=== PATIENT | female | born 1955 | race Caucasian/White ===

== ENCOUNTER → 2016-06-02 | Outpatient (CLI) | payer BC ==
--- NOTE | 2016-06-03 09:25 | REPMRS ---
Patient History The patient states she has not had a clinical breast exam in over a year. Patient is postmenopausal. No known family history of cancer. Digital Woman Screen Mammo: June 02, 2016 - Exam #: [id number] Bilateral CC and MLO view(s) were taken. Technologist: Oumou Becerra, Technologist Prior study comparison: March 01, 2013, digital woman screen mammo performed at [facility] to [facility]. November 16, 2011, digital woman screen mammo performed at [facility] to [facility]. FINDINGS: There are scattered fibroglandular densities. There has been no change in the appearance of the mammogram from the prior studies. There is a mild amount of residual fibroglandular tissue which is fairly symmetric. There is no interval development of dominant mass, architectural distortion, or clustered microcalcification suggestive of malignancy. ASSESSMENT: BI-RADS/ACR category 1 mammogram. Negative. Recommendation Routine screening mammogram in 1 year (for women over age 40). This mammogram was interpreted with the aid of an FDA-approved computer-aided dectection system. Electronically Signed By: Frederic Weber MD 06/03/16 0925
--- NOTE | 2016-06-05 09:52 | DEXA ---
AP SPINE L1 - L4 1.499 2.5 2.9 LT FEMUR TOTAL 0.895 -0.9 -0.5 RT FEMUR TOTAL 0.956 -0.4 0.0 TOTAL BODY TOTAL OTHER DUAL FEMUR FRAX* ASSESSMENT Risk factors: None. 10 year probability of fracture Major osteoporotic fracture 7.9 % Hip fracture 0.7 % COMMENTS: Normal bone densitometry of the spine. There is low bone density of the hips. The decreased density of the spine does represent a significant change. The decreased density of the left hip does represent a significant change. The decreased density of the right hip does represent a significant change. The density of the spine has increased 9.3% since the initial exam on 08/2003. The spine density has decreased 3.9% since the most recent exam on 02/2013. The density of the left hip has decreased 14.6% since the initial exam on 2003. The density of the left hip has decreased 4.9% since the most recent exam on 2012. The density of the right hip has decreased 5.6% since the initial exam on 2003. The density of the right hip has decreased 4.6% since the most recent exam on . FOLLOW-UP: Recommendation for the next bone density exam: 2 years. ROSE
== END ==
LOC: M WHC 15:53
PROVIDERS: ATTEND Family Medicine
DX: Z12.31 Encounter for screening mammogram for malignant neoplasm of breast (principal); M85.80 Other specified disorders of bone density and structure, unspecified site; Z78.0 Asymptomatic menopausal state

== ENCOUNTER → 2016-10-05 | Outpatient (CLI) | payer BC ==
[2016-10-05 07:13] LABS: BASO # 0.1 K/mm3 (0.0-0.2); BASO % 1.5 % (0.0-1.0); EOS # 0.5 K/mm3 (0.0-0.50); EOS % 7.7 % (0.0-3.0); LARGE UNSTAINED CELL # 0.2 K/mm3 (0.0-0.4); LARGE UNSTAINED CELL % 2.9 % (0.0-4.0); LYMPH # 2.2 K/mm3 (1.5-4.5); LYMPH % 31.9 % (24.0-44.0); MEAN CORPUSCULAR HEMOGLOBIN 32.8 pg (27.0-33.0); MEAN CORPUSCULAR HGB CONC 34.2 g/dl (32.0-36.5); MEAN CORPUSCULAR VOLUME 95.7 fl (80.0-96.0); MONO # 0.3 K/mm3 (0.0-0.8); MONO % 5.4 % (0.0-5.0); NEUTROPHILS # 3.2 K/mm3 (1.8-7.7); NEUTROPHILS % 50.7 % (36.0-66.0); PLATELET COUNT, AUTOMATED 239 k/mm3 (150-450); RED CELL DISTRIBUTION WIDTH 12.7 % (11.5-14.5); WHITE BLOOD COUNT 6.2 K/mm3 (4.0-10.0)
[2016-10-05 07:49] LABS: ALBUMIN 3.6 GM/DL (3.2-5.2); ALBUMIN/GLOBULIN RATIO 1.09 (1.00-1.93); ALKALINE PHOSPHATASE 92 U/L (45-117); ALT/SGPT 25 U/L (12-78); ANION GAP 6 MEQ/L (8-16); AST/SGOT 17 U/L (15-37); BILIRUBIN,TOTAL 0.3 MG/DL (0.2-1.0); BLOOD UREA NITROGEN 17 MG/DL (7-18); CARBON DIOXIDE LEVEL 29 MEQ/L (21-32); CHLORIDE LEVEL 107 MEQ/L (98-107); CHOLESTEROL LEVEL 268 MG/DL (<200); CREATININE FOR GFR 0.63 MG/DL (0.55-1.02); GLOMERULAR FILTRATION RATE > 60.0 (>51); GLUCOSE, FASTING 88 MG/DL (70-105); POTASSIUM SERUM 4.1 MEQ/L (3.5-5.1); SODIUM LEVEL 142 MEQ/L (136-145); TOTAL PROTEIN 6.9 GM/DL (6.4-8.2); TRIGLYCERIDES LEVEL 84 MG/DL (<150)
== END ==
LOC: M LAB 06:00
PROVIDERS: ATTEND Family Medicine
DX: E78.2 Mixed hyperlipidemia (principal); I10 Essential (primary) hypertension; E03.9 Hypothyroidism, unspecified; E55.9 Vitamin D deficiency, unspecified

== ENCOUNTER → 2017-10-15 | Outpatient (CLI) | payer BC ==
[2017-10-15 08:28] LABS: ALBUMIN 3.7 GM/DL (3.2-5.2); ALBUMIN/GLOBULIN RATIO 1.09 (1.00-1.93); ALKALINE PHOSPHATASE 76 U/L (45-117); ALT/SGPT 28 U/L (12-78); ANION GAP 6 MEQ/L (8-16); AST/SGOT 21 U/L (7-37); BILIRUBIN,TOTAL 0.4 MG/DL (0.2-1.0); BLOOD UREA NITROGEN 21 MG/DL (7-18); CALCIUM LEVEL 8.6 MG/DL (8.8-10.2); CARBON DIOXIDE LEVEL 27 MEQ/L (21-32); CHLORIDE LEVEL 110 MEQ/L (98-107); CREATININE FOR GFR 0.58 MG/DL (0.55-1.30); FREE T4 0.92 NG/DL (0.76-1.46); GLOMERULAR FILTRATION RATE > 60.0 (>45); GLUCOSE, FASTING 82 MG/DL (70-100); POTASSIUM SERUM 4.2 MEQ/L (3.5-5.1); SODIUM LEVEL 143 MEQ/L (136-145); TOTAL PROTEIN 7.1 GM/DL (6.4-8.2)
[2017-10-15 08:50] LABS: ESTIMATED AVERAGE GLUCOSE 105 MG/DL (60-110); HEMOGLOBIN A1c 5.3 %
[2017-10-15 10:22] LABS: PTH INTACT 36.4 PG/ML (18.5-88.0); TOTAL 25(OH) VITAMIN D 82.5 NG/ML (30.0-100.0)
[2017-10-16 14:10] LABS: INSULIN LEVEL 15.6 uIU/mL (2.6-24.9)
== END ==
LOC: M LAB 06:10
DX: E55.9 Vitamin D deficiency, unspecified (principal)
CPT/HCPCS: 83525

== ENCOUNTER → 2017-10-29 | Outpatient (CLI) | payer BC | LOC: M WHC 07:51 | DX: Z12.31 Encounter for screening mammogram for malignant neoplasm of breast (principal); Z78.0 Asymptomatic menopausal state | CPT/HCPCS: 77067 ==

== ENCOUNTER → 2017-11-01 | Outpatient (CLI) | payer BC | LOC: M RAD 12:28 | DX: E78.2 Mixed hyperlipidemia (principal) ==

== ENCOUNTER → 2018-04-18 | Outpatient (CLI) | payer BC ==
[2018-04-18 06:48] LABS: BASO # 0.1 10^3/uL (0.0-0.2); BASO % 0.9 % (0.0-1.0); EOS # 0.2 10^3/uL (0.0-0.50); EOS % 4.1 % (0.0-3.0); HEMATOCRIT 42.5 % (36.0-47.0); HEMOGLOBIN 14.2 g/dl (12.0-15.5); IMMATURE GRANULOCYTE % 0.2 % (0-3.0); LYMPH # 1.8 10^3/uL (1.5-4.5); LYMPH % 32.8 % (24.0-44.0); MEAN CORPUSCULAR HEMOGLOBIN 32.3 pg (27.0-33.0); MEAN CORPUSCULAR HGB CONC 33.4 g/dl (32.0-36.5); MEAN CORPUSCULAR VOLUME 96.6 fl (80.0-96.0); MONO # 0.5 10^3/uL (0.0-0.8); MONO % 9.4 % (0.0-5.0); NEUTROPHILS # 2.9 10^3/uL (1.8-7.7); NEUTROPHILS % 52.6 % (36.0-66.0); PLATELET COUNT, AUTOMATED 237 10^3/uL (150-450); RED CELL DISTRIBUTION WIDTH 12.5 % (11.5-14.5); WHITE BLOOD COUNT 5.4 10^3/uL (4.0-10.0)
[2018-04-18 07:04] LABS: ESTIMATED AVERAGE GLUCOSE 105 MG/DL (60-110); HEMOGLOBIN A1c 5.3 %
[2018-04-18 07:18] LABS: ALBUMIN 3.4 GM/DL (3.2-5.2); ALBUMIN/GLOBULIN RATIO 1.03 (1.00-1.93); ALKALINE PHOSPHATASE 95 U/L (45-117); ALT/SGPT 29 U/L (12-78); ANION GAP 7 MEQ/L (8-16); AST/SGOT 20 U/L (7-37); BILIRUBIN,TOTAL 0.4 MG/DL (0.2-1.0); BLOOD UREA NITROGEN 14 MG/DL (7-18); CALCIUM LEVEL 8.7 MG/DL (8.8-10.2); CARBON DIOXIDE LEVEL 27 MEQ/L (21-32); CHLORIDE LEVEL 108 MEQ/L (98-107); CHOLESTEROL LEVEL 277 MG/DL (<200); CHOLESTEROL RISK RATIO 4.467 (<5); CREATININE FOR GFR 0.63 MG/DL (0.55-1.30); FREE THYROXINE INDEX 2.6 % (1.3-4.8); GLOMERULAR FILTRATION RATE > 60.0 (>45); GLUCOSE, FASTING 87 MG/DL (70-100); HDL CHOLESTEROL 62 MG/DL (>40); LDL CHOLESTEROL 188 MG/DL (<100); NON-HDL-C 215 MG/DL; POTASSIUM SERUM 4.2 MEQ/L (3.5-5.1); SODIUM LEVEL 142 MEQ/L (136-145); T UPTAKE 33 % (30-39); THYROID STIMULATING HORMONE 0.137 uIU/ML (0.358-3.740); TOTAL PROTEIN 6.7 GM/DL (6.4-8.2); TRIGLYCERIDES LEVEL 134 MG/DL (<150)
== END ==
LOC: M LAB 06:08
DX: Z13.29 Encounter for screening for other suspected endocrine disorder (principal); E03.9 Hypothyroidism, unspecified
CPT/HCPCS: 84443

== ENCOUNTER 2018-09-18 15:28 | Emergency (ER) | payer BC ==
[~2018-09-18] VITALS: Ht 162.6 cm; Wt 86.4 kg
[2018-09-18] MEDS ORDERED: CYTO25TA6 PO (15:38)
[2018-09-18] MEDS ORDERED: SYNT88TA2 PO (15:38)
[2018-09-18] MEDS ORDERED: FLUORESCEIN OPHTH 1 MG STRIP OD ONE (16:15)
[2018-09-18] MEDS ORDERED: TETANUS/DIPHTHERIA TOX ADSORB ADULT 0.5ML SYR/VIAL (90714) IM ONE (17:00)
[2018-09-18] MEDS ORDERED: VIGA0.02 OD (17:24)
[2018-09-18] MEDS ORDERED: ARTIDRO OD (17:24)
[2018-09-18] MEDS ORDERED: POLYSOL OD (17:24)
[2018-09-18] MEDS ORDERED: GATIFLOXACIN 0.5% 2.5ML OPHTH SOL OD ONE (17:30)
[2018-09-18] MEDS ORDERED: POLYTRIM OPTH DROPS 10ML OD ONE (17:30)
[2018-09-18 17:39] VITALS: BP 155/75
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
== END 2018-09-18 18:28 | disposition home or self-care (01) ==
LOC: M ED 15:28
DX: S05.01XA Injury of conjunctiva and corneal abrasion without foreign body, right eye, initial encounter (principal); T15.81XA Foreign body in other and multiple parts of external eye, right eye, initial encounter; W38.XXXA Explosion and rupture of other specified pressurized devices, initial encounter; Y92.099 Unspecified place in other non-institutional residence as the place of occurrence of the external cause; Y93.89 Activity, other specified; Y99.9 Unspecified external cause status; H11.31 Conjunctival hemorrhage, right eye; E03.9 Hypothyroidism, unspecified; H20.9 Unspecified iridocyclitis; H43.811 Vitreous degeneration, right eye; Z79.899 Other long term (current) drug therapy

== ENCOUNTER → 2018-12-23 | Outpatient (REF) | payer BC ==
[~2018-12-23] MED LIST: ARTIDRO OD; CYTO25TA6 PO; POLYSOL OD; SYNT88TA2 PO; VIGA0.02 OD
[2018-12-23 12:50] LABS: CHOLESTEROL RISK RATIO 3.803 (<5); FREE T4 0.83 NG/DL (0.76-1.46); THYROID STIMULATING HORMONE 0.555 uIU/ML (0.358-3.740)
== END ==
LOC: M LABDRAWC 11:49
PROVIDERS: ATTEND Family Medicine
DX: E03.9 Hypothyroidism, unspecified (principal); E78.00 Pure hypercholesterolemia, unspecified

== ENCOUNTER → 2019-07-05 | Outpatient (CLI) | payer BC ==
--- NOTE | 2019-07-05 14:28 | REP ---
BILATERAL SCREENING DIGITAL MAMMOGRAM WITH 3D TOMOSYNTHESIS: There are no palpable abnormalities or other breast complaints. The the patient states she had a clinical breast examination July,. The Tyrer-Cuzick Lifetime Breast Cancer Risk score is: 9.1% . Comparison is the 03/01/2013. The breasts are almost entirely fatty. There is no dominant mass, micro calcific cluster or architectural distortion that would indicate malignancy. There are no additional findings on 3D tomosynthesiss. There is no change from the prior study. Impression: BIRADS/ACR category 1 mammogram. Negative. Recommendation: Routine annual screening mammography. This mammogram was interpreted with the aid of a FDA approved computer-aided detection system. A. Negative mammogram reports should not delay biopsy if a dominant or clinically suspicious mass is present. B. Not all breast cancers are identified by mammography or tomosynthesis. C. Adenosis and dense breasts may obscure an underlying neoplasm. Patient letter M1. Electronically Signed by Frederic Main MD 07/05/2019 02:20 P
--- NOTE | 2019-07-06 12:34 | REP ---
Clinical: Pain. Technique: AP, lateral, bilateral oblique and scaphoid views of the right wrist. Findings: Age-related osteopenia and toscano-carpal arthritic changes are appreciated. Findings include elements of joint space narrowing with cortical irregularities primarily involving the first and second carpometacarpal joints. Increase sclerosis along the radial surface with radiocarpal joint space narrowing also appreciated. 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 Electronically Signed by Gerardo Quiroz MD 07/06/2019 12:25 P
--- NOTE | 2019-07-06 12:38 | REP ---
Clinical: Pain. Technique: AP, lateral, bilateral oblique views of the right hand. Findings: Age-related osteopenia appreciated. Mild age-related degenerative changes include joint space narrowing primarily involving the PIP joints. Cortical irregularity and degenerative changes are also noted at at the first and second carpometacarpal joints. No acute fracture dislocation. Impression: Age-related osteopenia and arthritic changes. Electronically Signed by Gerardo Quiroz MD 07/06/2019 12:29 P
== END ==
LOC: M RAD 12:56
PROVIDERS: ATTEND Physician Assistant
DX: Z12.31 Encounter for screening mammogram for malignant neoplasm of breast (principal); M25.531 Pain in right wrist; M85.831 Other specified disorders of bone density and structure, right forearm; M19.031 Primary osteoarthritis, right wrist

== ENCOUNTER → 2019-12-12 | Outpatient (REF) | payer BC ==
[2019-12-12 11:34] LABS: BASO # 0.1 10^3/uL (0.0-0.2); BASO % 0.8 % (0.0-1.0); EOS # 0.2 10^3/uL (0.0-0.5); EOS % 3.5 % (0.0-3.0); HEMATOCRIT 43.8 % (36.0-47.0); HEMOGLOBIN 14.4 g/dl (12.0-15.5); LYMPH # 2.3 10^3/uL (1.5-5.0); MEAN CORPUSCULAR HEMOGLOBIN 31.6 pg (27.0-33.0); MEAN CORPUSCULAR HGB CONC 32.9 g/dl (32.0-36.5); MEAN CORPUSCULAR VOLUME 96.1 fl (80.0-96.0); MONO # 0.5 10^3/uL (0.0-0.8); MONO % 9.1 % (0.0-5.0); NEUTROPHILS # 2.9 10^3/uL (1.5-8.5); NEUTROPHILS % 48.4 % (36.0-66.0); PLATELET COUNT, AUTOMATED 263 10^3/uL (150-450); RED BLOOD COUNT 4.56 10^6/uL (4.00-5.40); WHITE BLOOD COUNT 5.9 10^3/uL (4.0-10.0)
[2019-12-12 12:11] LABS: ALBUMIN 3.8 GM/DL (3.2-5.2); ALT/SGPT 29 U/L (12-78); BILIRUBIN,TOTAL 0.5 MG/DL (0.2-1.0); BLOOD UREA NITROGEN 15 MG/DL (7-18); CALCIUM LEVEL 9.1 MG/DL (8.8-10.2); CARBON DIOXIDE LEVEL 27 MEQ/L (21-32); CHLORIDE LEVEL 108 MEQ/L (98-107); CREATININE FOR GFR 0.72 MG/DL (0.55-1.30); FREE T3 2.7 PG/ML (2.2-4.0); FREE T4 0.97 NG/DL (0.76-1.46); GLOMERULAR FILTRATION RATE > 60.0 (>45); GLUCOSE, FASTING 93 MG/DL (70-100); POTASSIUM SERUM 4.2 MEQ/L (3.5-5.1); SODIUM LEVEL 143 MEQ/L (136-145); THYROID STIMULATING HORMONE 0.108 uIU/ML (0.358-3.740); TOTAL PROTEIN 7.2 GM/DL (6.4-8.2)
[2019-12-12 12:18] LABS: TOTAL 25(OH) VITAMIN D 89.1 NG/ML (30.0-100.0)
== END ==
LOC: M LABDRAWC 11:02
PROVIDERS: ATTEND Physician Assistant
DX: E03.9 Hypothyroidism, unspecified (principal)

== ENCOUNTER → 2020-05-07 | Outpatient (REF) | payer BC ==
[2020-05-08 12:59] LABS: FREE T4 0.84 NG/DL (0.76-1.46); THYROID STIMULATING HORMONE 0.784 uIU/ML (0.358-3.740)
== END ==
LOC: M LABDRAWC 11:56
PROVIDERS: ATTEND Family Medicine
DX: E03.9 Hypothyroidism, unspecified (principal)

== ENCOUNTER → 2020-06-21 | Outpatient (REF) | payer BC ==
[2020-06-21 12:27] LABS: BASO # 0.1 10^3/uL (0.0-0.2); BASO % 1.3 % (0.0-1.0); EOS # 0.1 10^3/uL (0.0-0.5); EOS % 2.1 % (0.0-3.0); HEMATOCRIT 44.7 % (36.0-47.0); HEMOGLOBIN 14.6 g/dl (12.0-15.5); LYMPH % 40.9 % (24.0-44.0); MEAN CORPUSCULAR HEMOGLOBIN 31.9 pg (27.0-33.0); MEAN CORPUSCULAR HGB CONC 32.7 g/dl (32.0-36.5); MEAN CORPUSCULAR VOLUME 97.8 fl (80.0-96.0); MONO # 0.5 10^3/uL (0.0-0.8); MONO % 9.4 % (0.0-5.0); NEUTROPHILS # 2.2 10^3/uL (1.5-8.5); NEUTROPHILS % 46.1 % (36.0-66.0); PLATELET COUNT, AUTOMATED 251 10^3/uL (150-450); RED BLOOD COUNT 4.57 10^6/uL (4.00-5.40); WHITE BLOOD COUNT 4.8 10^3/uL (4.0-10.0)
[2020-06-21 13:18] LABS: ALBUMIN 3.6 GM/DL (3.2-5.2); ALT/SGPT 36 U/L (12-78); BILIRUBIN,TOTAL 0.5 MG/DL (0.2-1.0); BLOOD UREA NITROGEN 15 MG/DL (7-18); CALCIUM LEVEL 9.4 MG/DL (8.8-10.2); CARBON DIOXIDE LEVEL 28 MEQ/L (21-32); CHLORIDE LEVEL 108 MEQ/L (98-107); CHOLESTEROL LEVEL 268 MG/DL (<200); CHOLESTEROL RISK RATIO 3.884 (<5); FREE T4 0.72 NG/DL (0.76-1.46); GLOMERULAR FILTRATION RATE > 60.0 (>45); GLUCOSE, FASTING 88 MG/DL (70-100); HDL CHOLESTEROL 69 MG/DL (>40); LDL CHOLESTEROL 179 MG/DL (<100); NON-HDL-C 199 MG/DL; POTASSIUM SERUM 4.1 MEQ/L (3.5-5.1); SODIUM LEVEL 141 MEQ/L (136-145); TOTAL PROTEIN 6.8 GM/DL (6.4-8.2); TRIGLYCERIDES LEVEL 102 MG/DL (<150)
== END ==
LOC: M LABDRAWC 11:08
PROVIDERS: ATTEND Family Medicine
DX: E78.00 Pure hypercholesterolemia, unspecified (principal); E03.9 Hypothyroidism, unspecified

== ENCOUNTER → 2020-09-27 | Outpatient (REF) | payer BC ==
[2020-09-27 12:43] LABS: BASO # 0.1 10^3/uL (0.0-0.2); BASO % 1.2 % (0.0-1.0); EOS # 0.2 10^3/uL (0.0-0.5); EOS % 3.1 % (0.0-3.0); HEMOGLOBIN 14.8 g/dl (12.0-15.5); LYMPH % 41.4 % (24.0-44.0); MEAN CORPUSCULAR HEMOGLOBIN 31.9 pg (27.0-33.0); MEAN CORPUSCULAR HGB CONC 32.9 g/dl (32.0-36.5); MONO # 0.5 10^3/uL (0.0-0.8); MONO % 9.7 % (2.0-8.0); NEUTROPHILS # 2.2 10^3/uL (1.5-8.5); NEUTROPHILS % 44.4 % (36.0-66.0); PLATELET COUNT, AUTOMATED 260 10^3/uL (150-450); RED BLOOD COUNT 4.64 10^6/uL (4.00-5.40); WHITE BLOOD COUNT 4.9 10^3/uL (4.0-10.0)
[2020-09-27 13:23] LABS: ALBUMIN 3.5 GM/DL (3.2-5.2); ALT/SGPT 32 U/L (12-78); BILIRUBIN,TOTAL 0.4 MG/DL (0.2-1.0); BLOOD UREA NITROGEN 15 MG/DL (7-18); CARBON DIOXIDE LEVEL 27 MEQ/L (21-32); CHLORIDE LEVEL 110 MEQ/L (98-107); CREATININE FOR GFR 0.57 MG/DL (0.55-1.30); FREE T3 2.6 PG/ML (2.2-4.0); FREE T4 0.83 NG/DL (0.76-1.46); GLOMERULAR FILTRATION RATE > 60.0 (>45); GLUCOSE, FASTING 91 MG/DL (70-100); POTASSIUM SERUM 4.2 MEQ/L (3.5-5.1); SODIUM LEVEL 141 MEQ/L (136-145); TOTAL PROTEIN 6.8 GM/DL (6.4-8.2)
[2020-09-27 13:24] LABS: FOLATE > 24.0 NG/ML; VITAMIN B12 LEVEL 731 PG/ML
== END ==
LOC: M LABDRAWC 11:46
PROVIDERS: ATTEND Physician Assistant
DX: E03.9 Hypothyroidism, unspecified (principal)

== ENCOUNTER → 2020-12-05 | Outpatient (REF) | payer BC ==
[2020-12-05 12:51] LABS: FREE T3 2.3 PG/ML (2.2-4.0); FREE T4 0.84 NG/DL (0.76-1.46); THYROID STIMULATING HORMONE 13.5 uIU/ML (0.358-3.740); TOTAL 25(OH) VITAMIN D 68.5 NG/ML (30.0-100.0)
== END ==
LOC: M LABDRAWC 11:07
PROVIDERS: ATTEND Physician Assistant
DX: E03.9 Hypothyroidism, unspecified (principal)

== ENCOUNTER → 2021-02-07 | Outpatient (REF) | payer BC ==
[2021-02-07 11:48] LABS: BASO # 0.1 10^3/uL (0.0-0.2); BASO % 1.2 % (0.0-1.0); EOS # 0.1 10^3/uL (0.0-0.5); EOS % 2.4 % (0.0-3.0); HEMATOCRIT 45.4 % (36.0-47.0); LYMPH # 1.9 10^3/uL (1.5-5.0); MEAN CORPUSCULAR HEMOGLOBIN 32.5 pg (27.0-33.0); MEAN CORPUSCULAR VOLUME 98.3 fl (80.0-96.0); MONO # 0.6 10^3/uL (0.0-0.8); MONO % 9.7 % (2.0-8.0); NEUTROPHILS # 3.1 10^3/uL (1.5-8.5); NEUTROPHILS % 53.4 % (36.0-66.0); PLATELET COUNT, AUTOMATED 248 10^3/uL (150-450); RED BLOOD COUNT 4.62 10^6/uL (4.00-5.40); WHITE BLOOD COUNT 5.9 10^3/uL (4.0-10.0)
[2021-02-07 12:25] LABS: ALBUMIN 3.5 GM/DL (3.2-5.2); ALT/SGPT 38 U/L (12-78); BILIRUBIN,TOTAL 0.4 MG/DL (0.2-1.0); BLOOD UREA NITROGEN 13 MG/DL (7-18); CARBON DIOXIDE LEVEL 28 MEQ/L (21-32); CHLORIDE LEVEL 111 MEQ/L (98-107); FREE T3 2.3 PG/ML (2.2-4.0); FREE T4 1.03 NG/DL (0.76-1.46); GLOMERULAR FILTRATION RATE > 60.0 (>45); GLUCOSE, FASTING 88 MG/DL (70-100); POTASSIUM SERUM 4.1 MEQ/L (3.5-5.1); SODIUM LEVEL 142 MEQ/L (136-145); TOTAL 25(OH) VITAMIN D 69.3 NG/ML (30.0-100.0); TOTAL PROTEIN 6.8 GM/DL (6.4-8.2)
== END ==
LOC: M LABDRAWC 11:21
PROVIDERS: ATTEND Physician Assistant
DX: E03.9 Hypothyroidism, unspecified (principal)

== ENCOUNTER → 2021-05-09 | Outpatient (REF) | payer BC ==
[2021-05-09 11:39] LABS: BASO # 0.1 10^3/uL (0.0-0.2); BASO % 1.6 % (0.0-1.0); EOS # 0.2 10^3/uL (0.0-0.5); EOS % 4.1 % (0.0-3.0); HEMATOCRIT 42.6 % (36.0-47.0); HEMOGLOBIN 14.1 g/dl (12.0-15.5); LYMPH # 2.1 10^3/uL (1.5-5.0); LYMPH % 41.2 % (24.0-44.0); MEAN CORPUSCULAR HGB CONC 33.1 g/dl (32.0-36.5); MEAN CORPUSCULAR VOLUME 96.6 fl (80.0-96.0); MONO # 0.5 10^3/uL (0.0-0.8); MONO % 9.9 % (2.0-8.0); NEUTROPHILS # 2.2 10^3/uL (1.5-8.5); PLATELET COUNT, AUTOMATED 257 10^3/uL (150-450); RED BLOOD COUNT 4.41 10^6/uL (4.00-5.40); WHITE BLOOD COUNT 5.1 10^3/uL (4.0-10.0)
[2021-05-09 12:15] LABS: ALBUMIN 3.4 GM/DL (3.2-5.2); ALT/SGPT 27 U/L (12-78); BILIRUBIN,TOTAL 0.4 MG/DL (0.2-1.0); BLOOD UREA NITROGEN 13 MG/DL (7-18); CALCIUM LEVEL 9.1 MG/DL (8.8-10.2); CARBON DIOXIDE LEVEL 27 MEQ/L (21-32); CHLORIDE LEVEL 110 MEQ/L (98-107); CREATININE FOR GFR 0.66 MG/DL (0.55-1.30); FREE T4 1.24 NG/DL (0.76-1.46); GLOMERULAR FILTRATION RATE > 60.0 (>45); GLUCOSE, FASTING 92 MG/DL (70-100); POTASSIUM SERUM 4.2 MEQ/L (3.5-5.1); SODIUM LEVEL 143 MEQ/L (136-145); TOTAL 25(OH) VITAMIN D 74.3 NG/ML (30.0-100.0); TOTAL PROTEIN 6.6 GM/DL (6.4-8.2)
== END ==
LOC: M LABDRAWC 10:58
PROVIDERS: ATTEND Physician Assistant
DX: E03.9 Hypothyroidism, unspecified (principal)

== ENCOUNTER → 2021-07-17 | Outpatient (REF) | payer BC ==
[2021-07-17 11:52] LABS: BASO # 0.1 10^3/uL (0.0-0.2); BASO % 1.6 % (0.0-1.0); EOS # 0.2 10^3/uL (0.0-0.5); EOS % 3.5 % (0.0-3.0); HEMATOCRIT 43.9 % (36.0-47.0); HEMOGLOBIN 14.5 g/dl (12.0-15.5); LYMPH # 1.8 10^3/uL (1.5-5.0); LYMPH % 31.5 % (24.0-44.0); MEAN CORPUSCULAR HEMOGLOBIN 32.4 pg (27.0-33.0); MEAN CORPUSCULAR VOLUME 98.2 fl (80.0-96.0); MONO # 0.5 10^3/uL (0.0-0.8); MONO % 8.6 % (2.0-8.0); NEUTROPHILS # 3.1 10^3/uL (1.5-8.5); NEUTROPHILS % 54.6 % (36.0-66.0); PLATELET COUNT, AUTOMATED 256 10^3/uL (150-450); RED BLOOD COUNT 4.47 10^6/uL (4.00-5.40); WHITE BLOOD COUNT 5.7 10^3/uL (4.0-10.0)
[2021-07-17 12:14] LABS: ALBUMIN 3.5 GM/DL (3.2-5.2); ALT/SGPT 29 U/L (12-78); BILIRUBIN,TOTAL 0.4 MG/DL (0.2-1.0); BLOOD UREA NITROGEN 10 MG/DL (7-18); CALCIUM LEVEL 9.1 MG/DL (8.8-10.2); CARBON DIOXIDE LEVEL 28 MEQ/L (21-32); CHLORIDE LEVEL 108 MEQ/L (98-107); FREE T4 1.07 NG/DL (0.76-1.46); GLOMERULAR FILTRATION RATE > 60.0 (>45); GLUCOSE, FASTING 90 MG/DL (70-100); POTASSIUM SERUM 4.7 MEQ/L (3.5-5.1); SODIUM LEVEL 142 MEQ/L (136-145); TOTAL 25(OH) VITAMIN D 70.9 NG/ML (30.0-100.0); TOTAL PROTEIN 6.7 GM/DL (6.4-8.2)
== END ==
LOC: M LABDRAWC 11:02
PROVIDERS: ATTEND Physician Assistant
DX: E03.9 Hypothyroidism, unspecified (principal)

== ENCOUNTER → 2021-10-02 | Outpatient (REF) | payer BC ==
[2021-10-02 11:59] LABS: BASO # 0.1 10^3/uL (0.0-0.2); BASO % 1.3 % (0.0-1.0); EOS # 0.3 10^3/uL (0.0-0.5); EOS % 6.1 % (0.0-3.0); HEMATOCRIT 44.8 % (36.0-47.0); HEMOGLOBIN 14.7 g/dl (12.0-15.5); LYMPH # 1.7 10^3/uL (1.5-5.0); LYMPH % 32.3 % (24.0-44.0); MEAN CORPUSCULAR HEMOGLOBIN 32.1 pg (27.0-33.0); MEAN CORPUSCULAR HGB CONC 32.8 g/dl (32.0-36.5); MEAN CORPUSCULAR VOLUME 97.8 fl (80.0-96.0); MONO # 0.5 10^3/uL (0.0-0.8); MONO % 8.9 % (2.0-8.0); NEUTROPHILS # 2.8 10^3/uL (1.5-8.5); NEUTROPHILS % 51.2 % (36.0-66.0); PLATELET COUNT, AUTOMATED 258 10^3/uL (150-450); RED BLOOD COUNT 4.58 10^6/uL (4.00-5.40); WHITE BLOOD COUNT 5.4 10^3/uL (4.0-10.0)
[2021-10-02 12:22] LABS: ERYTHROCYTE SEDIMENTATION RATE 9 mm/hr (0-30)
[2021-10-02 13:21] LABS: ALBUMIN 3.7 GM/DL (3.2-5.2); ALT/SGPT 26 U/L (12-78); BILIRUBIN,TOTAL 0.5 MG/DL (0.2-1.0); BLOOD UREA NITROGEN 11 MG/DL (7-18); CALCIUM LEVEL 9.6 MG/DL (8.8-10.2); CARBON DIOXIDE LEVEL 27 MEQ/L (21-32); CHLORIDE LEVEL 111 MEQ/L (98-107); CHOLESTEROL LEVEL 320 MG/DL (<200); CHOLESTEROL RISK RATIO 4.444 (<5); CREATININE FOR GFR 0.66 MG/DL (0.55-1.30); FREE T4 1.03 NG/DL (0.76-1.46); GLOMERULAR FILTRATION RATE > 60.0 (>45); GLUCOSE, FASTING 92 MG/DL (70-100); HDL CHOLESTEROL 72 MG/DL (>40); LDL CHOLESTEROL 227 MG/DL (<100); NON-HDL-C 248 MG/DL; POTASSIUM SERUM 4.4 MEQ/L (3.5-5.1); RHEUMATOID FACTOR QUANT < 10.0 IU/ML (<15.0); SODIUM LEVEL 143 MEQ/L (136-145); TRIGLYCERIDES LEVEL 106 MG/DL (<150)
[2021-10-04 00:08] LABS: ANA (HEP2) Positive (.); CYCLIC CITRULLINATED PEPTIDE 2 units (0-19)
== END ==
LOC: M LABDRAWC 11:15
PROVIDERS: ATTEND Physician Assistant
DX: E78.00 Pure hypercholesterolemia, unspecified (principal); M25.50 Pain in unspecified joint; E03.9 Hypothyroidism, unspecified

== ENCOUNTER → 2022-02-05 | Outpatient (REF) | payer BC ==
[2022-02-05 13:26] LABS: ALBUMIN 3.6 GM/DL (3.2-5.2); ALT/SGPT 30 U/L (12-78); BILIRUBIN,TOTAL 0.4 MG/DL (0.2-1.0); BLOOD UREA NITROGEN 14 MG/DL (7-18); CALCIUM LEVEL 9.1 MG/DL (8.8-10.2); CARBON DIOXIDE LEVEL 26 MEQ/L (21-32); CHLORIDE LEVEL 110 MEQ/L (98-107); CHOLESTEROL LEVEL 196 MG/DL (<200); CHOLESTEROL RISK RATIO 2.545 (<5); CREATININE FOR GFR 0.71 MG/DL (0.55-1.30); FREE T4 1.03 NG/DL (0.76-1.46); GLOMERULAR FILTRATION RATE > 60.0 (>45); GLUCOSE, FASTING 91 MG/DL (70-100); HDL CHOLESTEROL 77 MG/DL (>40); LDL CHOLESTEROL 104 MG/DL (<100); NON-HDL-C 119 MG/DL; POTASSIUM SERUM 4.3 MEQ/L (3.5-5.1); SODIUM LEVEL 141 MEQ/L (136-145); TOTAL PROTEIN 6.9 GM/DL (6.4-8.2); TRIGLYCERIDES LEVEL 74 MG/DL (<150)
== END ==
LOC: M LABDRAWC 11:08
PROVIDERS: ATTEND Family Medicine
DX: R76.0 Raised antibody titer (principal); E03.9 Hypothyroidism, unspecified; E78.00 Pure hypercholesterolemia, unspecified

== ENCOUNTER → 2022-05-08 | Outpatient (REF) | payer MEDICARE, BC ==
[2022-05-08 11:55] LABS: ALBUMIN 3.5 G/DL (3.2-5.2); ALKALINE PHOSPHATASE 85 U/L (46-116); ALT/SGPT 24 U/L (7.0-40); AST/SGOT 27 U/L (<34); BILIRUBIN,TOTAL 0.5 MG/DL (0.3-1.2); BLOOD UREA NITROGEN 14 MG/DL (9-23); CALCIUM LEVEL 8.6 MG/DL (8.3-10.6); CARBON DIOXIDE LEVEL 26 MMOL/L (20-31); CHLORIDE LEVEL 106 MMOL/L (98-107); CHOLESTEROL LEVEL 291 MG/DL (<200); CHOLESTEROL RISK RATIO 4.38 (<5); CREATININE FOR GFR 0.63 MG/DL (0.55-1.30); FREE T4 1.13 NG/DL (0.89-1.76); GLOMERULAR FILTRATION RATE > 60.0 (>45); GLUCOSE, FASTING 88 MG/DL (74-106); HDL CHOLESTEROL 66.4 MG/DL (>40); LDL CHOLESTEROL 203.8 MG/DL (<100); NON-HDL-C 225 MG/DL; POTASSIUM SERUM 4.5 MMOL/L (3.5-5.1); SODIUM LEVEL 140 MMOL/L (136-145); THYROID STIMULATING HORMONE 1.937 uIU/ML (0.55-4.78); TOTAL PROTEIN 6.7 G/DL (5.7-8.2); TRIGLYCERIDES LEVEL 104 MG/DL (<150)
[2022-05-09 23:07] LABS: ANA (HEP2) Positive (.)
== END ==
LOC: M LABDRAWC 11:01
PROVIDERS: ATTEND Family Medicine
DX: E03.9 Hypothyroidism, unspecified (principal); E78.00 Pure hypercholesterolemia, unspecified; R76.0 Raised antibody titer

== ENCOUNTER → 2022-10-15 | Outpatient (REF) | payer MEDICARE ==
[2022-10-15 12:31] LABS: EOS # 0.1 10^3/uL (0.0-0.5); EOS % 2.1 % (0.0-3.0); HEMATOCRIT 43.9 % (36.0-47.0); HEMOGLOBIN 14.8 g/dl (12.0-15.5); LYMPH # 1.1 10^3/uL (1.5-5.0); LYMPH % 25.7 % (24.0-44.0); MEAN CORPUSCULAR HGB CONC 33.7 g/dl (32.0-36.5); MONO # 0.3 10^3/uL (0.0-0.8); MONO % 6.9 % (2.0-8.0); NEUTROPHILS # 2.7 10^3/uL (1.5-8.5); NEUTROPHILS % 64.3 % (36.0-66.0); PLATELET COUNT, AUTOMATED 211 10^3/uL (150-450); RED BLOOD COUNT 4.48 10^6/uL (4.00-5.40); WHITE BLOOD COUNT 4.2 10^3/uL (4.0-10.0)
[2022-10-15 12:32] LABS: APPEARANCE, URINE HAZY (CLEAR); BACTERIA, URINE AUTO NEGATIVE (NEGATIVE); BILIRUBIN, URINE AUTO NEGATIVE (NEGATIVE); BLOOD, URINE BLOOD NEGATIVE (NEGATIVE); COLOR, URINE AMBER (YELLOW); GLUCOSE, URINE (UA) AUTO NEGATIVE (NEGATIVE); KETONE, URINE AUTO NEGATIVE (NEGATIVE); LEUKOCYTE ESTERASE, URINE AUTO NEGATIVE (NEGATIVE); NITRITE, URINE AUTO NEGATIVE (NEGATIVE); PROTEIN, URINE AUTO NEGATIVE (NEGATIVE); RBC, URINE AUTO 0 /HPF (0-3); SPECIFIC GRAVITY URINE AUTO 1.013 (1.002-1.035); SQUAMOUS EPITHELIAL CELL UR AU 0 /HPF (0-6); UROBILINOGEN, URINE AUTO 0.2 mg/dL (0.0-2.0); WBC, URINE AUTO 0 /HPF (0-3)
[2022-10-15 12:36] LABS: C REACTIVE PROTEIN QUANTITATIV < 0.40 MG/DL (<1.0)
[2022-10-15 12:38] LABS: ALKALINE PHOSPHATASE 85 U/L (46-116); ALT/SGPT 27 U/L (7.0-40); AST/SGOT 28 U/L (<34); BILIRUBIN,TOTAL 0.4 MG/DL (0.3-1.2); BLOOD UREA NITROGEN 18 MG/DL (9-23); CALCIUM LEVEL 9.4 MG/DL (8.3-10.6); CARBON DIOXIDE LEVEL 25 MMOL/L (20-31); CHLORIDE LEVEL 107 MMOL/L (98-107); COMPLEMENT C3 128.8 MG/DL (90.0-170.0); COMPLEMENT C4 28.7 MG/DL (12-36); CREATININE FOR GFR 0.59 MG/DL (0.55-1.30); GLOMERULAR FILTRATION RATE > 60.0 (>45); GLUCOSE, FASTING 84 MG/DL (74-106); POTASSIUM SERUM 3.9 MMOL/L (3.5-5.1); SODIUM LEVEL 141 MMOL/L (136-145)
[2022-10-15 12:59] LABS: CREATININE,RANDOM URINE 44.5 MG/DL
[2022-10-15 13:00] LABS: TOTAL PROTEIN,RANDOM URINE < 6.0 MG/DL (0.0-14.0)
[2022-10-15 13:30] LABS: ERYTHROCYTE SEDIMENTATION RATE 25 mm/hr (0-30)
[2022-10-20 04:08] LABS: COMPLEMENT TOTAL (CH50) > 60 U/mL (>41)
== END ==
LOC: M SFHCRHEU 09:11
PROVIDERS: ATTEND Internal Medicine Rheumatology
DX: R76.8 Other specified abnormal immunological findings in serum (principal); M35.3 Polymyalgia rheumatica

== ENCOUNTER → 2022-10-15 | Outpatient (CLI) | payer MEDICARE | LOC: M RAD 09:48 | PROVIDERS: ATTEND Internal Medicine Rheumatology | DX: M19.041 Primary osteoarthritis, right hand (principal); M19.042 Primary osteoarthritis, left hand; M19.071 Primary osteoarthritis, right ankle and foot; M19.072 Primary osteoarthritis, left ankle and foot; R76.8 Other specified abnormal immunological findings in serum; M35.3 Polymyalgia rheumatica ==

== ENCOUNTER → 2022-11-13 | Outpatient (REF) | payer MEDICARE ==
[2022-11-13 12:05] LABS: BASO # 0.1 10^3/uL (0.0-0.2); BASO % 1.4 % (0.0-1.0); EOS # 0.3 10^3/uL (0.0-0.5); EOS % 5.1 % (0.0-3.0); HEMATOCRIT 44.1 % (36.0-47.0); HEMOGLOBIN 14.6 g/dl (12.0-15.5); LYMPH % 39.1 % (24.0-44.0); MEAN CORPUSCULAR HEMOGLOBIN 32.7 pg (27.0-33.0); MEAN CORPUSCULAR HGB CONC 33.1 g/dl (32.0-36.5); MEAN CORPUSCULAR VOLUME 98.7 fl (80.0-96.0); MONO # 0.5 10^3/uL (0.0-0.8); MONO % 9.1 % (2.0-8.0); NEUTROPHILS # 2.3 10^3/uL (1.5-8.5); NEUTROPHILS % 45.1 % (36.0-66.0); PLATELET COUNT, AUTOMATED 266 10^3/uL (150-450); RED BLOOD COUNT 4.47 10^6/uL (4.00-5.40); WHITE BLOOD COUNT 5.1 10^3/uL (4.0-10.0)
[2022-11-13 12:36] LABS: THYROID STIMULATING HORMONE 22.901 uIU/ML (0.55-4.78)
[2022-11-13 12:37] LABS: ALBUMIN 3.7 G/DL (3.2-5.2); ALKALINE PHOSPHATASE 85 U/L (46-116); ALT/SGPT 26 U/L (7.0-40); AST/SGOT 27 U/L (<34); BILIRUBIN,TOTAL 0.5 MG/DL (0.3-1.2); BLOOD UREA NITROGEN 17 MG/DL (9-23); CALCIUM LEVEL 8.6 MG/DL (8.3-10.6); CARBON DIOXIDE LEVEL 26 MMOL/L (20-31); CHLORIDE LEVEL 108 MMOL/L (98-107); CHOLESTEROL LEVEL 267 MG/DL (<200); CHOLESTEROL RISK RATIO 3.95 (<5); CREATININE FOR GFR 0.68 MG/DL (0.55-1.30); FREE T4 0.83 NG/DL (0.89-1.76); GLOMERULAR FILTRATION RATE > 60.0 (>45); GLUCOSE, FASTING 86 MG/DL (74-106); HDL CHOLESTEROL 67.5 MG/DL (>40); LDL CHOLESTEROL 182.7 MG/DL (<100); NON-HDL-C 199.5 MG/DL; POTASSIUM SERUM 4.2 MMOL/L (3.5-5.1); SODIUM LEVEL 140 MMOL/L (136-145); TOTAL PROTEIN 6.6 G/DL (5.7-8.2); TRIGLYCERIDES LEVEL 84 MG/DL (<150)
== END ==
LOC: M LABDRAWC 11:33
PROVIDERS: ATTEND Family Medicine
DX: E03.9 Hypothyroidism, unspecified (principal); E78.00 Pure hypercholesterolemia, unspecified

== ENCOUNTER → 2023-01-08 | Outpatient (REF) | payer MEDICARE ==
[2023-01-08 12:59] LABS: THYROID STIMULATING HORMONE 19.601 uIU/ML (0.55-4.78)
[2023-01-08 13:00] LABS: FREE T4 0.89 NG/DL (0.89-1.76)
== END ==
LOC: M LABDRAWC 11:28
PROVIDERS: ATTEND Nurse Practitioner Adult Health
DX: E03.9 Hypothyroidism, unspecified (principal)

== ENCOUNTER → 2023-04-09 | Outpatient (REF) | payer MEDICARE ==
[2023-04-09 12:57] LABS: FREE T4 1.4 NG/DL (0.89-1.76); THYROID STIMULATING HORMONE 0.13 uIU/ML (0.55-4.78)
== END ==
LOC: M LABDRAWC 11:28
PROVIDERS: ATTEND Internal Medicine Endocrinology, Diabetes & Metabolism
DX: E03.9 Hypothyroidism, unspecified (principal)

== ENCOUNTER → 2023-06-11 | Outpatient (REF) | payer MEDICARE ==
[2023-06-11 11:56] LABS: ALBUMIN 3.7 G/DL (3.2-5.2); ALKALINE PHOSPHATASE 75 U/L (46-116); ALT/SGPT 23 U/L (7.0-40); AST/SGOT 19 U/L (<34); BILIRUBIN,TOTAL 0.5 MG/DL (0.3-1.2); BLOOD UREA NITROGEN 17 MG/DL (9-23); CALCIUM LEVEL 9.1 MG/DL (8.3-10.6); CARBON DIOXIDE LEVEL 26 MMOL/L (20-31); CHLORIDE LEVEL 110 MMOL/L (98-107); CHOLESTEROL LEVEL 282 MG/DL (<200); CREATININE FOR GFR 0.57 MG/DL (0.55-1.30); GLOMERULAR FILTRATION RATE > 60.0 (>45); GLUCOSE, FASTING 94 MG/DL (74-106); LDL CHOLESTEROL 199.2 MG/DL (<100); POTASSIUM SERUM 4.1 MMOL/L (3.5-5.1); SODIUM LEVEL 143 MMOL/L (136-145); TOTAL PROTEIN 6.7 G/DL (5.7-8.2); TRIGLYCERIDES LEVEL 79 MG/DL (<150)
== END ==
LOC: M LABDRAWC 11:17
PROVIDERS: ATTEND Nurse Practitioner Adult Health
DX: E78.00 Pure hypercholesterolemia, unspecified (principal)

== ENCOUNTER → 2023-12-08 | Outpatient (REF) | payer MEDICARE ==
[2023-12-08 14:00] LABS: THYROID STIMULATING HORMONE 0.358 uIU/ML (0.55-4.78)
[2023-12-08 14:01] LABS: FREE T4 1.24 NG/DL (0.89-1.76)
== END ==
LOC: M LABDRAWC 11:11
PROVIDERS: ATTEND Internal Medicine Endocrinology, Diabetes & Metabolism
DX: E03.9 Hypothyroidism, unspecified (principal)

== ENCOUNTER → 2023-12-23 | Outpatient (REF) | payer MEDICARE ==
[2023-12-23 12:03] LABS: BASO # 0.1 10^3/uL (0.0-0.2); BASO % 0.9 % (0.0-1.0); EOS # 0.3 10^3/uL (0.0-0.5); EOS % 4.1 % (0.0-3.0); HEMATOCRIT 43.4 % (36.0-47.0); HEMOGLOBIN 14.6 g/dl (12.0-15.5); LYMPH # 1.9 10^3/uL (1.5-5.0); LYMPH % 29.4 % (24.0-44.0); MEAN CORPUSCULAR HEMOGLOBIN 32.4 pg (27.0-33.0); MEAN CORPUSCULAR HGB CONC 33.6 g/dl (32.0-36.5); MEAN CORPUSCULAR VOLUME 96.4 fl (80.0-96.0); MONO # 0.6 10^3/uL (0.0-0.8); MONO % 8.9 % (2.0-8.0); NEUTROPHILS # 3.6 10^3/uL (1.5-8.5); NEUTROPHILS % 56.5 % (36.0-66.0); PLATELET COUNT, AUTOMATED 264 10^3/uL (150-450); WHITE BLOOD COUNT 6.4 10^3/uL (4.0-10.0)
[2023-12-23 12:15] LABS: C REACTIVE PROTEIN QUANTITATIV < 0.40 MG/DL (<1.0)
[2023-12-23 12:16] LABS: MAGNESIUM LEVEL 1.8 MG/DL (1.8-2.4); PHOSPHORUS LEVEL 3.3 MG/DL (2.4-5.1)
[2023-12-23 12:22] LABS: FOLATE > 24.0 NG/ML (>5.4); TOTAL 25(OH) VITAMIN D 52.7 NG/ML (20.0-100.0); VITAMIN B12 LEVEL 751 PG/ML (211-911)
[2023-12-23 12:28] LABS: ERYTHROCYTE SEDIMENTATION RATE 21 mm/hr (0-30)
== END ==
LOC: M LABDRAWC 11:06
PROVIDERS: ATTEND Nurse Practitioner Adult Health
DX: R25.2 Cramp and spasm (principal); Z79.899 Other long term (current) drug therapy; E06.3 Autoimmune thyroiditis

== ENCOUNTER → 2024-06-09 | Outpatient (REF) | payer MEDICARE ==
[2024-06-09 14:42] LABS: BASO # 0.1 10^3/uL (0.0-0.2); BASO % 1.4 % (0.0-1.0); EOS # 0.3 10^3/uL (0.0-0.5); HEMOGLOBIN 14.6 g/dl (12.0-15.5); LYMPH # 1.6 10^3/uL (1.5-5.0); LYMPH % 28.2 % (24.0-44.0); MEAN CORPUSCULAR HEMOGLOBIN 32.5 pg (27.0-33.0); MEAN CORPUSCULAR HGB CONC 33.2 g/dl (32.0-36.5); MONO # 0.5 10^3/uL (0.0-0.8); MONO % 8.3 % (2.0-8.0); NEUTROPHILS # 3.3 10^3/uL (1.5-8.5); NEUTROPHILS % 56.9 % (36.0-66.0); PLATELET COUNT, AUTOMATED 261 10^3/uL (150-450); RED BLOOD COUNT 4.49 10^6/uL (4.00-5.40); WHITE BLOOD COUNT 5.8 10^3/uL (4.0-10.0)
[2024-06-09 14:47] LABS: THYROID STIMULATING HORMONE 0.439 uIU/ML (0.55-4.78)
[2024-06-09 14:49] LABS: FREE T4 1.42 NG/DL (0.89-1.76)
[2024-06-09 14:52] LABS: ALBUMIN 3.7 G/DL (3.2-5.2); ALKALINE PHOSPHATASE 95 U/L (35-104); ALT/SGPT 21 U/L (7.0-40); AST/SGOT 19 U/L (<34); BILIRUBIN,TOTAL 0.5 MG/DL (0.3-1.2); BLOOD UREA NITROGEN 17 MG/DL (9-23); CALCIUM LEVEL 9.4 MG/DL (8.3-10.6); CARBON DIOXIDE LEVEL 29 MMOL/L (20-31); CHLORIDE LEVEL 108 MMOL/L (98-107); CHOLESTEROL LEVEL 287 MG/DL (<200); CHOLESTEROL RISK RATIO 4.23 (<5); CREATININE FOR GFR 0.62 MG/DL (0.55-1.30); GLOMERULAR FILTRATION RATE > 60.0 (>45); GLUCOSE, FASTING 94 MG/DL (74-106); HDL CHOLESTEROL 67.7 MG/DL (>40); LDL CHOLESTEROL 195.7 MG/DL (<100); NON-HDL-C 219.3 MG/DL; POTASSIUM SERUM 4.8 MMOL/L (3.5-5.1); SODIUM LEVEL 143 MMOL/L (136-145); TOTAL PROTEIN 6.9 G/DL (5.7-8.2); TRIGLYCERIDES LEVEL 118 MG/DL (<150)
== END ==
LOC: M LABDRAWC 13:11
PROVIDERS: ATTEND Nurse Practitioner Adult Health
DX: E06.3 Autoimmune thyroiditis (principal); E78.00 Pure hypercholesterolemia, unspecified; E66.9 Obesity, unspecified

== ENCOUNTER → 2024-08-04 | Outpatient (REF) | payer MEDICARE ==
[2024-08-04 12:42] LABS: ALBUMIN 3.7 G/DL (3.2-5.2); BILIRUBIN,DIRECT 0.1 MG/DL (<0.4); BILIRUBIN,TOTAL 0.5 MG/DL (0.3-1.2); TOTAL PROTEIN 7.1 G/DL (5.7-8.2)
[2024-08-04 12:46] LABS: FREE T4 1.14 NG/DL (0.89-1.76); THYROID STIMULATING HORMONE 3.19 uIU/ML (0.55-4.78)
== END ==
LOC: M LABDRAWC 07:19
PROVIDERS: ATTEND Nurse Practitioner Adult Health
DX: E78.00 Pure hypercholesterolemia, unspecified (principal); E06.3 Autoimmune thyroiditis

== ENCOUNTER → 2024-08-31 | Outpatient (REF) | payer MEDICARE ==
[2024-08-31 13:37] LABS: ALBUMIN 3.7 G/DL (3.2-5.2); BILIRUBIN,DIRECT 0.1 MG/DL (<0.4); BILIRUBIN,TOTAL 0.4 MG/DL (0.3-1.2); TOTAL PROTEIN 6.8 G/DL (5.7-8.2)
== END ==
LOC: M LABDRAWC 12:17
PROVIDERS: ATTEND Nurse Practitioner Adult Health
DX: E78.00 Pure hypercholesterolemia, unspecified (principal); R94.5 Abnormal results of liver function studies

== ENCOUNTER → 2024-12-07 | Outpatient (REF) | payer MEDICARE ==
[2024-12-07 13:19] LABS: BASO # 0.1 10^3/uL (0.0-0.2); BASO % 1.4 % (0.0-1.0); EOS # 0.2 10^3/uL (0.0-0.5); EOS % 3.3 % (0.0-3.0); LYMPH # 1.9 10^3/uL (1.5-5.0); LYMPH % 33.9 % (24.0-44.0); MONO # 0.5 10^3/uL (0.0-0.8); MONO % 9.1 % (2.0-8.0); NEUTROPHILS # 3.0 10^3/uL (1.5-8.5); NEUTROPHILS % 52.1 % (36.0-66.0); PLATELET COUNT, AUTOMATED 292 10^3/uL (150-450)
[2024-12-07 13:43] LABS: ALT/SGPT 39 U/L (7.0-40); AST/SGOT 33 U/L (<34); CALCIUM LEVEL 9.5 MG/DL (8.3-10.6); CARBON DIOXIDE LEVEL 24 MMOL/L (20-31); CHLORIDE LEVEL 108 MMOL/L (98-107); CHOLESTEROL LEVEL 230 MG/DL (<200); CHOLESTEROL RISK RATIO 3.43 (<5); CREATININE FOR GFR 0.63 MG/DL (0.55-1.30); GLOMERULAR FILTRATION RATE > 90.0 (>45); LDL CHOLESTEROL 147.0 MG/DL (<100); NON-HDL-C 163.0 MG/DL; POTASSIUM SERUM 4.3 MMOL/L (3.5-5.1); SODIUM LEVEL 145 MMOL/L (136-145); TRIGLYCERIDES LEVEL 80 MG/DL (<150)
[2024-12-07 13:45] LABS: FREE T4 1.38 NG/DL (0.89-1.76)
== END ==
LOC: M LABDRAWC 12:14
PROVIDERS: ATTEND Nurse Practitioner Adult Health
DX: E06.3 Autoimmune thyroiditis (principal); E78.00 Pure hypercholesterolemia, unspecified

== ENCOUNTER → 2025-02-02 | Outpatient (REF) | payer MEDICARE ==
[2025-02-02 13:10] LABS: FREE T4 1.39 NG/DL (0.89-1.76)
== END ==
LOC: M LABDRAWC 12:16
PROVIDERS: ATTEND Nurse Practitioner Adult Health
DX: E06.3 Autoimmune thyroiditis (principal)

== ENCOUNTER → 2025-04-05 | Outpatient (REF) | payer MEDICARE ==
[2025-04-05 12:52] LABS: FREE T4 1.72 NG/DL (0.89-1.76)
== END ==
LOC: M LABDRAWC 11:49 → M LAB REF 11:49
PROVIDERS: ATTEND Nurse Practitioner Adult Health
DX: E06.3 Autoimmune thyroiditis (principal)